=== PATIENT | male | born 1970 | race Caucasian/White ===

== ENCOUNTER 2017-09-20 06:27 | Emergency (ER) | payer BC, OTHER ==
[2017-09-20 06:32] VITALS: BP 142/106
[2017-09-20] MEDS ORDERED: Alum Hydrox/Mag Hydrox/Simeth 30 ML, Lidocaine 2% 15 ML PO ONE ×2 (07:14)
--- NOTE | 2017-09-20 07:14 | EDM.PDOC ---
ED HPI GENERAL MEDICAL PROBLEM - General Chief Complaint: Abdominal Pain Stated Complaint: STOMACH PAIN Time Seen by Provider: 09/20/17 07:07 - History of Present Illness INITIAL COMMENTS - FREE TEXT/NARRATIVE: 47-year-old male presents emergency room with abdominal pain. This abdominal pain started around 4:00 this morning fairly sharp over the stomach. The patient has a long history of dyspepsia he is taking Protonix on a daily basis. He tried some Tums and [place] for this this morning with no relief. The patient has loose stools 2-3 a day this is normal for him. Patient denies any vomiting he has had some nausea. Patient has a significant history of long-standing stomach trouble requiring the use of a PPI. He is treated for hypertension and depression. Upper Abdominal Pain Score (Numeric/FACES): 10 - Related Data Allergies Allergy/AdvReac Type Severity Reaction Status Date / Time bupropion HCl Allergy Hives Verified 09/20/17 06:33 [From Wellbutrin] Penicillins Allergy Swelling Verified 09/20/17 06:33 Home Meds: Home Meds Acetaminophen [Tylenol] 1 - 2 tab PO ONCALL PRN 03/14/15 [History] amLODIPine/Benazepril [Lotrel 5-20 MG] 20 cap PO BEDTIME 05/07/15 [History] DULoxetine HCl [Cymbalta] 120 mg PO DAILY 09/20/17 [History] Gabapentin [Neurontin] 300 mg PO TID 09/20/17 [History] Hydrochlorothiazide 25 mg PO DAILY 09/20/17 [History] LORazepam 1 mg PO DAILY PRN 09/20/17 [History] Metoprolol Tartrate 50 mg PO BID 09/20/17 [History] Pantoprazole [ProTONIX] 40 mg PO DAILY 09/20/17 [History] Sucralfate [Carafate] 1 gm PO QIDACANDBED #60 tablet 09/20/17 [Rx] traMADol HCl [Tramadol HCl] 100 mg PO TID 09/20/17 [History] Past Medical History Cardiovascular History: Reports: Hypertension Gastrointestinal History: Reports: GERD Psychiatric History: Reports: Anxiety Social & Family History - Tobacco Use Smoking Status *Q: Never Smoker - Alcohol Use Days Per Week of Alcohol Use: 7 Number of Drinks Per Day: 1 Total Drinks Per Week: 7 - Recreational Drug Use Recreational Drug Use: No ED ROS GENERAL - Review of Systems Review Of Systems: See Below Constitutional: Reports: No Symptoms HEENT: Reports: No Symptoms Respiratory: Reports: No Symptoms Cardiovascular: Reports: No Symptoms GI/Abdominal: Reports: Abdominal Pain, Diarrhea (Patient has chronic loose stools 2-3 daily these are non-crampy.), Nausea. Denies: Black Stool, Bloody Stool, Constipation, Vomiting Neurological: Reports: No Symptoms ED EXAM, GI/ABD - Physical Exam Exam: See Below Exam Limited By: No Limitations General Appearance: Alert, No Apparent Distress Head: Atraumatic, Normocephalic Neck: Normal Inspection, Supple, Non-Tender, Full Range of Motion. No: Lymphadenopathy (L), Lymphadenopathy (R) Respiratory/Chest: No Respiratory Distress, Lungs Clear, Normal Breath Sounds Cardiovascular: Regular Rate, Rhythm, No Edema, No Murmur GI/Abdominal Exam: Normal Bowel Sounds, Soft, Other (He has some epigastric discomfort). No: Distended, Guarding, Rigid, Rebound Back Exam: Normal Inspection. No: CVA Tenderness (L), CVA Tenderness (R) Extremities: Normal Inspection, No Pedal Edema Course - Vital Signs Last Recorded V/S: Last Vital Signs Temp 35.9 C 09/20/17 06:28 Pulse 74 09/20/17 06:28 Resp 18 09/20/17 06:28 BP 142/106 H 09/20/17 06:28 Pulse Ox 96 09/20/17 06:28 - Orders/Labs/Meds Orders: Active Orders 24 hr Category Date Time Status H P[facility]ORI BREATH TEST, ADULT [REF] Stat Lab 09/20/17 08:15 Received Labs: Laboratory Tests 09/20/17 09/20/17 Range/Units 07:31 07:31 WBC 7.18 (4.23-9.07) K/mm3 RBC 4.83 (4.63-6.08) M/mm3 Hgb 14.9 (13.7-17.5) gm/L Hct 42.2 (40.1-51.0) % MCV 87.4 (79.0-92.2) fl MCH 30.8 (25.7-32.2) pg MCHC 35.3 (32.2-35.5) g/dl RDW Std Deviation 39.9 (35.1-43.9) fL Plt Count 171 (163-337) K/mm3 MPV 11.4 (9.4-12.3) fl Neutrophils % (Manual) 40 (40-60) % Band Neutrophils % 0 (0-10) % Lymphocytes % (Manual) 54 H (20-40) % Atypical Lymphs % 0 % Monocytes % (Manual) 5 (2-10) % Eosinophils % (Manual) 1 (0.8-7.0) % Basophils % (Manual) 0 L (0.2-1.2) Platelet Estimate Adequate RBC Morph Comment Normal Sodium 141 (136-145) mEq/L Potassium 3.2 L (3.5-5.1) mEq/L Chloride 103 (98-107) mEq/L Carbon Dioxide 29 (21-32) mEq/L Anion Gap 12.2 (5-15) BUN 16 (7-18) mg/dL Creatinine 1.1 (0.7-1.3) mg/dL Est Cr Clr Drug Dosing 97.56 mL/min Estimated GFR (MDRD) > 60 (>60) mL/min BUN/Creatinine Ratio 14.5 (14-18) Glucose 113 H (74-106) mg/dL Calcium 8.6 (8.5-10.1) mg/dL Total Bilirubin 1.5 H (0.2-1.0) mg/dL AST 28 (15-37) U/L ALT 64 H (16-63) U/L Alkaline Phosphatase 48 (46-116) U/L Total Protein 7.1 (6.4-8.2) g/dl Albumin 3.8 (3.4-5.0) g/dl Globulin 3.3 gm/dL Albumin/Globulin Ratio 1.2 (1-2) Lipase 357 (73-393) U/L Meds: Medications Discontinued Medications Generic Name Dose Route Start Last Admin Trade Name Freq PRN Reason Stop Dose Admin Al Hydroxide/Mg Hydroxide 30 0 ml 09/20/17 07:14 09/20/17 07:23 ml/ Lidocaine HCl 15 ml PO 09/20/17 07:15 45 ml ONETIME ONE Administration Potassium Chloride 40 meq 09/20/17 09:31 09/20/17 09:35 Klor-Con M20 PO 09/20/17 09:32 40 meq ONETIME ONE Administration Sucralfate 1 gm 09/20/17 07:41 09/20/17 08:16 Carafate PO 09/20/17 07:42 1 gm ONETIME ONE Administration - Re-Assessments/Exams Free Text/Narrative Re-Assessment/Exam: 09/20/17 09:43 Patient had significant improvement with a GI cocktail this is followed up with some Carafate. He's doing much better at this time laboratory evaluation is unrevealing. I discussed the situation with the patient he needs to discuss this with his regular physician and discuss the need for a EGD at this point with breakthrough symptoms on PPI therapy. The patient has a breath test for H. pylori pending at this point. He will continue his Protonix we will add Carafate Departure - Departure Time of Disposition: 09:44 Disposition: Home, Self-Care 01 Clinical Impression: Dyspepsia - Discharge Information Prescriptions: Sucralfate [Carafate] 1 gm PO QIDACANDBED #60 tablet Referrals: Aleena Kenny DO [Primary Care Provider] - Forms: ED Department Discharge Additional Instructions: Return to the emergency room with any questions problems worsening symptoms. Follow-up he regular physician next week discussed the need for endoscopic surveillance of your esophagus stomach and duodenum. Continue your Protonix. We have added Carafate. Take one before each meal and at bedtime 4 times daily take your other medications at least 1 hour before or 2 hours after the Carafate. - My Orders Last 24 Hours: My Active Orders 09/20/17 08:15 H PYLORI BREATH TEST, ADULT [REF] Stat - Assessment/Plan Last 24 Hours: My Active Orders 09/20/17 08:15 H PYLORI BREATH TEST, ADULT [REF] Stat
[2017-09-20] MEDS ORDERED: Sucralfate Suspension 1 GM/10 ML Cup PO ONE (07:41)
[2017-09-20] MEDS ORDERED: Potassium Chloride 20 MEQ Tab.ER PO ONE (09:31)
== END 2017-09-20 09:25 | disposition home or self-care (01) ==
LOC: JD.ED 06:27
DX: R10.13 Epigastric pain (principal); I10 Essential (primary) hypertension; Z88.0 Allergy status to penicillin; Z88.8 Allergy status to other drugs, medicaments and biological substances; Z79.899 Other long term (current) drug therapy
CPT/HCPCS: 36415; 80053; 83013; 83690; 85025; 99284; A9270

== ENCOUNTER 2017-10-25 18:22 | Emergency (ER) | payer OTHER, BC ==
[2017-10-25 18:37] VITALS: BP 141/96
[2017-10-25] MEDS ORDERED: Ondansetron 4 MG/2 ML SDV IVPUSH ONE (19:13)
[2017-10-25] MEDS ORDERED: HYDROmorphone 1 MG/ML Syringe IVPUSH ONE (19:13)
[2017-10-25] MEDS ORDERED: Sodium Chloride 0.9% 1,000 ML IV SCH (19:15)
--- NOTE | 2017-10-25 19:45 | EDM.PDOC ---
ED HPI GENERAL MEDICAL PROBLEM - General Chief Complaint: Gastrointestinal Problem Stated Complaint: NAUSEA,VOMITING,DIARRHEA Time Seen by Provider: 10/25/17 19:03 Source of Information: Reports: Patient History Limitations: Reports: No Limitations - History of Present Illness INITIAL COMMENTS - FREE TEXT/NARRATIVE: This is a 47-year-old male. He has a history of chronic diarrhea. He' s been worked up in the past and states they have not found irritable bowel syndrome, Crohn's disease or ulcerative colitis. Essentially they don't know why he has chronic diarrhea. This morning he began with abdominal cramps with nausea and vomiting with increased watery diarrhea. He has been drinking fluids but not able to eat anything. He comes to the ER because of these symptoms and the worsening diarrhea. He denies any fever or chills he denies any cough congestion sore throat. He just complains of severe abdominal cramps with the nausea and vomiting and the diarrhea. Abdominal Pain Score (Numeric/FACES): 6 - Related Data Allergies Allergy/AdvReac Type Severity Reaction Status Date / Time bupropion HCl Allergy Hives Verified 09/20/17 06:33 [From Wellbutrin] Penicillins Allergy Swelling Verified 09/20/17 06:33 Home Meds: Home Meds Acetaminophen [Tylenol] 1 - 2 tab PO TID 03/14/15 [History] amLODIPine/Benazepril [Lotrel 5-20 MG] 20 cap PO BEDTIME 05/07/15 [History] DULoxetine HCl [Cymbalta] 120 mg PO DAILY 09/20/17 [History] Gabapentin [Neurontin] 300 mg PO TID 09/20/17 [History] Hydrochlorothiazide 25 mg PO DAILY 09/20/17 [History] LORazepam 1 mg PO DAILY PRN 09/20/17 [History] Metoprolol Tartrate 50 mg PO BID 09/20/17 [History] Pantoprazole [ProTONIX] 40 mg PO DAILY 09/20/17 [History] Sucralfate [Carafate] 1 gm PO QIDACANDBED #60 tablet 09/20/17 [Rx] traMADol HCl [Tramadol HCl] 100 mg PO TID 09/20/17 [History] Dicyclomine [Bentyl] 20 mg PO Q8H PRN #12 tab 10/25/17 [Rx] Ondansetron [Zofran] 4 mg PO Q6H PRN #15 tab 10/25/17 [Rx] Past Medical History Cardiovascular History: Reports: Hypertension Gastrointestinal History: Reports: GERD Musculoskeletal History: Reports: Back Pain, Chronic, Fibromyalgia Neurological History: Reports: Migraines Psychiatric History: Reports: Anxiety, Depression Dermatologic History: Reports: Other (See Below) Other Dermatologic History: warts Social & Family History - Tobacco Use Smoking Status *Q: Never Smoker - Caffeine Use Caffeine Use: Reports: Coffee, Soda - Alcohol Use Days Per Week of Alcohol Use: 7 Number of Drinks Per Day: 1 Total Drinks Per Week: 7 - Recreational Drug Use Recreational Drug Use: No ED ROS GENERAL - Review of Systems Review Of Systems: See Below Constitutional: Denies: Fever, Chills HEENT: Reports: No Symptoms Respiratory: Reports: No Symptoms Cardiovascular: Reports: No Symptoms Endocrine: Reports: No Symptoms GI/Abdominal: Reports: Abdominal Pain, Diarrhea, Nausea, Vomiting. Denies: Black Stool, Bloody Stool, Constipation : Reports: No Symptoms Musculoskeletal: Reports: No Symptoms Skin: Reports: No Symptoms Neurological: Reports: No Symptoms Psychiatric: Reports: No Symptoms Hematologic/Lymphatic: Reports: No Symptoms Immunologic: Reports: No Symptoms ED EXAM, GI/ABD - Physical Exam Exam: See Below Exam Limited By: No Limitations General Appearance: Alert, WD/WN, No Apparent Distress Eyes: Bilateral: Normal Appearance Ears: Normal External Exam, Normal TMs Nose: Normal Inspection Throat/Mouth: Normal Inspection, Normal Lips, Normal Voice, No Airway Compromise , Other (Mucous membranes are fairly moist) Head: Normocephalic Neck: Supple Respiratory/Chest: No Respiratory Distress, Lungs Clear, Normal Breath Sounds Cardiovascular: Regular Rate, Rhythm, No Murmur GI/Abdominal Exam: Soft, Other (Mild soreness over his abdomen and in the quadrant he does have some tenderness in the left lower quadrant noted, bowel sounds are positive but they are decreased, there is no guarding no rigidity no rebound noted) Back Exam: Full Range of Motion Extremities: Normal Inspection, Normal Range of Motion Neurological: Alert, Oriented Psychiatric: Normal Affect, Normal Mood Skin Exam: Warm, Dry, Other (He has good skin turgor) Course - Vital Signs Last Recorded V/S: Last Vital Signs Temp 97.8 F 10/25/17 18:36 Pulse 77 10/25/17 18:36 Resp 20 10/25/17 18:36 BP 141/96 H 10/25/17 18:36 Pulse Ox 99 10/25/17 18:36 - Orders/Labs/Meds Orders: Active Orders 24 hr Category Date Time Status [facility] 1 & 2 RT-PCR Stat Lab 10/25/17 19:20 Received Sodium Chloride 0.9% [Normal Saline] 1,000 ml Med 10/25/17 19:15 Active IV ASDIRECTED Medication Orders Sodium Chloride (Normal Saline) 1,000 mls @ 1,000 mls/hr IV ASDIRECTED JOVAN Last Admin: 10/25/17 19:48 Dose: 1,000 mls/hr Labs: Laboratory Tests 10/25/17 10/25/17 10/25/17 Range/Units 19:20 19:30 19:30 WBC 9.91 H (4.23-9.07) K/mm3 RBC 4.86 (4.63-6.08) M/mm3 Hgb 15.2 (13.7-17.5) gm/L Hct 42.7 (40.1-51.0) % MCV 87.9 (79.0-92.2) fl MCH 31.3 (25.7-32.2) pg MCHC 35.6 H (32.2-35.5) g/dl RDW Std Deviation 41.1 (35.1-43.9) fL Plt Count 167 (163-337) K/mm3 MPV 11.3 (9.4-12.3) fl Neut % (Auto) 80.4 H (34.0-67.9) % Lymph % (Auto) 10.0 L (21.8-53.1) % [place] % (Auto) 8.4 (5.3-12.2) % Eos % (Auto) 0.8 (0.8-7.0) Baso % (Auto) 0.2 (0.1-1.2) % Neut # (Auto) 7.97 H (1.78-5.38) K/mm3 Lymph # (Auto) 0.99 L (1.32-3.57) K/mm3 [place] # (Auto) 0.83 H (0.30-0.82) K/mm3 Eos # (Auto) 0.08 (0.04-0.54) K/mm3 Baso # (Auto) 0.02 (0.01-0.08) K/mm3 Sodium 138 (136-145) mEq/L Potassium 4.0 (3.5-5.1) mEq/L Chloride 102 (98-107) mEq/L Carbon Dioxide 25 (21-32) mEq/L Anion Gap 15.0 (5-15) BUN 16 (7-18) mg/dL Creatinine 1.2 (0.7-1.3) mg/dL Est Cr Clr Drug Dosing 89.43 mL/min Estimated GFR (MDRD) > 60 (>60) mL/min BUN/Creatinine Ratio 13.3 L (14-18) Glucose 115 H (74-106) mg/dL Calcium 8.9 (8.5-10.1) mg/dL Total Bilirubin 1.5 H (0.2-1.0) mg/dL AST 56 H (15-37) U/L ALT 88 H (16-63) U/L Alkaline Phosphatase 55 (46-116) U/L Total Protein 7.8 (6.4-8.2) g/dl Albumin 4.1 (3.4-5.0) g/dl Globulin 3.7 gm/dL Albumin/Globulin Ratio 1.1 (1-2) Lipase 310 (73-393) U/L C.difficile [id number] Presumptive negative C. difficile Tox (PCR) Negative Meds: Medications Generic Name Dose Route Start Last Admin Trade Name Freq PRN Reason Stop Dose Admin Sodium Chloride 1,000 mls @ 1,000 mls/hr 10/25/17 19:15 10/25/17 19:48 Normal Saline IV 1,000 mls/hr ASDIRECTED JOVAN Administration Discontinued Medications Generic Name Dose Route Start Last Admin Trade Name Freq PRN Reason Stop Dose Admin Hydromorphone HCl 0.5 mg 10/25/17 19:13 10/25/17 19:47 Dilaudid IVPUSH 10/25/17 19:14 0.5 mg ONETIME ONE Administration Hydromorphone HCl 0.5 mg 10/25/17 21:46 10/25/17 21:52 Dilaudid IVPUSH 10/25/17 21:47 0.5 mg ONETIME ONE Administration Sodium Chloride 1,000 mls @ 999 mls/hr 10/25/17 21:34 10/25/17 21:40 Normal Saline IV 10/25/17 22:34 999 mls/hr ONETIME ONE Administration Ondansetron HCl 4 mg 10/25/17 19:13 10/25/17 19:47 Zofran IVPUSH 10/25/17 19:14 4 mg ONETIME ONE Administration - Re-Assessments/Exams Free Text/Narrative Re-Assessment/Exam: 10/25/17 22:40 Spoke to the patient regarding his test results. From his last visit about 2 weeks ago he did have a positive H. pylori. However I'm not going to place him on antibiotics since he is now having abdominal pain and nausea and vomiting and diarrhea and I don't worsen those symptoms. However I gave him the results of the test to take to his family doctor this week. I believe he has a viral gastroenteritis. He is feeling much better with the fluids and the medications. Departure - Departure Time of Disposition: 22:41 Disposition: Home, Self-Care 01 Condition: Good Clinical Impression: Viral gastroenteritis, Abdominal cramps Nausea and vomiting Qualifiers: Vomiting type: unspecified Vomiting Intractability: non-intractable Qualified Code(s): R11.2 - Nausea with vomiting, unspecified Diarrhea Qualifiers: Diarrhea type: unspecified type Qualified Code(s): R19.7 - Diarrhea, unspecified - Discharge Information Prescriptions: Dicyclomine [Bentyl] 20 mg PO Q8H PRN #12 tab PRN Reason: Abdominal Pain Ondansetron [Zofran] 4 mg PO Q6H PRN #15 tab PRN Reason: Nausea Referrals: Aleena Kenny DO [Primary Care Provider] - Forms: ED Department Discharge, ED Return to Work/School Form Additional Instructions: Take the positive results for the H. pylori to your family doctor this week, please have them reassess your medications for the chronic diarrhea since gabapentin Cymbalta Protonix metoprolol and HCTZ all have the side effect of diarrhea, also take your lab work from the ER visit that shows some mild elevated liver enzymes and total bili since the lorazepam Protonix Lotrel Tylenol and Cymbalta can cause elevated liver enzymes, drink lots of fluids, take the medicine for nausea and abdominal cramps as needed, rest and sleep as much as possible, see your doctor this week for recheck - My Orders Last 24 Hours: My Active Orders 10/25/17 19:15 Sodium Chloride 0.9% [Normal Saline] 1,000 ml IV ASDIRECTED 10/25/17 19:20 [facility] 1 & 2 RT-PCR Stat - Assessment/Plan Last 24 Hours: My Active Orders 10/25/17 19:15 Sodium Chloride 0.9% [Normal Saline] 1,000 ml IV ASDIRECTED 10/25/17 19:20 [facility] 1 & 2 RT-PCR Stat
[2017-10-25] MEDS ORDERED: Sodium Chloride 0.9% 1,000 ML IV ONE (21:34)
[2017-10-25] MEDS ORDERED: HYDROmorphone 0.5 MG/0.5 ML Syringe IVPUSH ONE (21:46)
== END 2017-10-25 23:00 | disposition home or self-care (01) ==
LOC: JD.ED 18:22 → SUPCPDRO 18:22 → JD.ED 23:00
DX: A08.4 Viral intestinal infection, unspecified (principal); I10 Essential (primary) hypertension; K21.9 Gastro-esophageal reflux disease without esophagitis; F32.9 Major depressive disorder, single episode, unspecified; Z79.899 Other long term (current) drug therapy; Z88.0 Allergy status to penicillin; Z88.8 Allergy status to other drugs, medicaments and biological substances
CPT/HCPCS: 36415; 80053; 83690; 85025; 87425; 87493; 87798; 89055; 96361; 96374; 96375; 96376; 99284; J1170; J2405; J7040